=== PATIENT | female | born 1970 | race African-American/Black ===

== ENCOUNTER 2016-12-10 18:28 | Emergency (ER) | payer MEDICAID ==
[~2016-12-10] VITALS: Ht 154.9 cm; Wt 49.0 kg
[2016-12-11] MEDS ORDERED: ONDANSETRON 4MG ODT PO ONE (03:30)
[2016-12-11] MEDS ORDERED: KETOROLAC 30MG/ML VIAL IM ONE (03:30)
[2016-12-11 05:00] VITALS: BP 100/50
== END 2016-12-11 05:01 | disposition home or self-care (01) ==
LOC: ER 18:28
DX: M75.101 Unspecified rotator cuff tear or rupture of right shoulder, not specified as traumatic (principal); F17.210 Nicotine dependence, cigarettes, uncomplicated; Z98.51 Tubal ligation status
CPT/HCPCS: 81025; 96372; 99283; J1885; Q0162; Z7610; A4565

== ENCOUNTER 2017-09-15 16:49 | Emergency (ER) | payer MEDICAID ==
[~2017-09-15] VITALS: Ht 154.9 cm; Wt 50.0 kg
[2017-09-15 19:00] LABS: CLARITY URINE CLEAR (CLEAR); COLOR URINE YELLOW (YELLOW); KETONES URINE NEGATIVE (NEGATIVE); LEUKOCYTE ESTERASE URINE NEGATIVE (NEGATIVE); NITRITE URINE NEGATIVE (NEGATIVE); OCCULT BLOOD URINE NEGATIVE (NEGATIVE); PROTEIN URINE NEGATIVE (NEGATIVE); SPECIFIC GRAVITY URINE 1.018 (1.005-1.030); UROBILINOGEN URINE 0.2 E.U./dL (0.2-1.0)
[2017-09-15] MEDS ORDERED: ACETAMINOPHEN 325MG TABLET PO ONE (22:15)
[2017-09-15 22:43] LABS: BASOPHILS % 0.3 % (0.0-2.0); EOSINOPHILS % 0.9 % (0.0-5.0); HEMATOCRIT. 30.1 % (36.0-48.0); HEMOGLOBIN. 10.1 g/dL (12.0-16.0); LYMPHOCYTES % 39.2 % (20.0-50.0); MEAN CORPUSCULAR HEMOGLOBIN 32.1 pg (28.0-32.0); MEAN CORPUSCULAR VOLUME 95.7 fL (81.0-99.0); MEAN PLATELET VOLUME 7.6 fl (7.4-10.4); MONOCYTES % 8.8 % (2.0-8.0); NEUTROPHILS % 50.8 % (40.0-76.0); PLATELET 329 x1000/uL (130-400); RED BLOOD CELL COUNT 3.15 mill/uL (4.2-5.4); RED CELL DISTRIBUTION WIDTH 16.4 % (11.6-14.6)
[2017-09-15 22:45] LABS: CHLORIDE 109 mEq/L (98-107)
[2017-09-16 00:37] VITALS: BP 107/68
== END 2017-09-16 01:00 | disposition home or self-care (01) ==
LOC: ER 19:11
DX: M79.605 Pain in left leg (principal); M79.604 Pain in right leg; X50.1XXA Overexertion from prolonged static or awkward postures, initial encounter; Y93.89 Activity, other specified; Y92.9 Unspecified place or not applicable
CPT/HCPCS: 36415; 80053; 81003; 81025; 85025; 93970; 99285